=== PATIENT | female | born 1960 | race African-American/Black ===

== ENCOUNTER 2019-02-04 00:22 | Emergency (ER) | payer OTHER ==
[~2019-02-04] VITALS: Ht 175.3 cm; Wt 94.5 kg
[2019-02-04] MEDS ORDERED: HYDR25TA PO (00:49)
[2019-02-04 02:00] VITALS: BP 128/86
[2019-02-04] MEDS ORDERED: DiphenhydrAMINE HCL 25 MG CAPSULE PO ONE (02:30)
== END 2019-02-04 02:45 | disposition home or self-care (01) ==
LOC: EMS 00:28
DX: T78.1XXA Other adverse food reactions, not elsewhere classified, initial encounter (principal); L50.9 Urticaria, unspecified; Z88.0 Allergy status to penicillin; X58.XXXA Exposure to other specified factors, initial encounter

== ENCOUNTER 2021-10-13 10:02 | Emergency (ER) | payer OTHER ==
[~2021-10-13] VITALS: Ht 165.1 cm; Wt 96.8 kg
[~2021-10-13 10:02] MED LIST: HYDR25TA2 PO
[2021-10-13] MEDS ORDERED: KETOROLAC TROMETHAMINE 60 MG/2 ML VIAL IM ONE (13:15)
[2021-10-13] MEDS ORDERED: CYCLOBENZAPRINE HCL 10 MG TABLET PO ONE (13:15)
[2021-10-13 13:28] VITALS: BP 127/63
[2021-10-13] MEDS ORDERED: CYCL10TA17 PO (13:30)
== END 2021-10-13 13:39 | disposition home or self-care (01) ==
LOC: EMS 10:18
DX: M54.41 Lumbago with sciatica, right side (principal); G89.29 Other chronic pain; I10 Essential (primary) hypertension; F12.90 Cannabis use, unspecified, uncomplicated; Z88.0 Allergy status to penicillin; Z79.899 Other long term (current) drug therapy
CPT/HCPCS: 96372; 99283; J1885